=== PATIENT | female | born 1955 | race Caucasian/White ===

== ENCOUNTER 2019-04-26 14:02 | Emergency (ER) | payer MEDICARE, OTHER ==
[~2019-04-26] VITALS: Ht 165.1 cm; Wt 63.5 kg
[2019-04-26] MEDS ORDERED: IV NORMAL SALINE 1,000ML 1,000 ML IV SCH (14:08)
[2019-04-26] MEDS ORDERED: IPRATRPIUM/ALBUTEROL 0.5/2.5MG 3 ML NEBU. ONE (14:09)
[2019-04-26] MEDS ORDERED: AZITHROMYCIN 500 MG in IV NORMAL SALINE 250ML 250 ML IV ONE (14:15)
[2019-04-26] MEDS ORDERED: IPRATRPIUM/ALBUTEROL 0.5/2.5MG 3 ML NEBU. NEB ONE (14:15)
--- NOTE | 2019-04-26 14:16 | PHYS DOC ---
Past History Past Medical History: COPD Smoking: Cigarettes, Less than 1pk/day Adult General [facility] HPI Patient is a 63-year-old female, with a history of COPD, on home oxygen, current smoker, who presents to the emergency department for evaluation. Patient states that yesterday evening she began experiencing some increasing shortness of breath, along with a cough productive of some brownish sputum. She reports a generalized headache associated with the cough. She has not had any fevers or chills, chest pain, nausea, or vomiting. EMS reported that the patient was wheezing and gave her breathing treatment, they reported her blood pressure being somewhat low, in the 80s systolic. Upon arrival, she has a normal oxygen saturation on her home setting of 4 L of oxygen via nasal cannula. There are no alleviating or exacerbating factors to her symptoms otherwise. Review of Systems Review of Systems Constitutional: Denies fever or chills [] Eyes: Denies change in visual acuity, redness, or eye pain [] HENT: Denies nasal congestion or sore throat [] Respiratory: No additional information not addressed in HPI [] Cardiovascular: The patient denies any chest pain, palpitations, or orthopnea [] GI: Denies abdominal pain, nausea, vomiting, bloody stools or diarrhea [] : Denies dysuria or hematuria [] Musculoskeletal: Denies back pain or joint pain [] Integument: Denies rash or skin lesions [] Neurologic: Denies headache, focal weakness or sensory changes [] Endocrine: Denies polyuria or polydipsia [] All other systems were reviewed and found to be within normal limits, except as documented in this note. Current Medications Current Medications Current Medications Medications (Trade) Dose Ordered Sig/Suzie Start Time Stop Time Status Last Admin Dose Admin Albuterol/ Ipratropium (Duoneb) 3 ml 1X ONCE 04/26/19 14:15 04/26/19 14:16 UNV Physical Exam Physical Exam PHYSICAL EXAM: CONSTITUTIONAL: Well developed, well nourished HEAD: normocephalic, atraumatic EENT: PERRL, EOMI. Conjunctivae normal color, sclerae non-icteric; moist mucous membranes. NECK: Supple, non-tender; no meningismus. LUNGS: There are coarse wheezes scattered in all lung lo with scattered rhonchi, breathing even and unlabored. Globally diminished air movement. HEART: Regular rate and rhythm, no murmur CHEST: No deformity; non-tender ABDOMEN: The abdomen is soft, and non-tender, no masses or bruits. EXTREM: Normal ROM; no deformity, no calf tenderness. Normal pulses palpable in all extremities. There is no pedal edema. SKIN: No rash; no diaphoresis NEURO: Alert; normal speech and cognition; CN's grossly intact; strength grossly intact without focal deficit. BACK: No CVA TTP. Current Patient Data Lab Results Laboratory Tests Test 04/26/19 14:13 04/26/19 15:17 White Blood Count 9.5 x10^3/uL Red Blood Count 3.95 x10^6/uL Hemoglobin 11.2 g/dL Hematocrit 35.5 % Mean Corpuscular Volume 90 fL Mean Corpuscular Hemoglobin 28 pg Mean Corpuscular Hemoglobin Concent 32 g/dL Red Cell Distribution Width 14.3 % Platelet Count 396 x10^3/uL Neutrophils (%) (Auto) 64 % Lymphocytes (%) (Auto) 25 % Monocytes (%) (Auto) 8 % Eosinophils (%) (Auto) 3 % Basophils (%) (Auto) 1 % Neutrophils # (Auto) 6.0 x10^3uL Lymphocytes # (Auto) 2.3 x10^3/uL Monocytes # (Auto) 0.7 x10^3/uL Eosinophils # (Auto) 0.3 x10^3/uL Basophils # (Auto) 0.1 x10^3/uL Sodium Level 131 mmol/L Potassium Level 4.7 mmol/L Chloride Level 90 mmol/L Carbon Dioxide Level 40 mmol/L Anion Gap 1 Blood Urea Nitrogen 5 mg/dL Creatinine 0.6 mg/dL Estimated GFR (Cockcroft-Gault) 101.0 BUN/Creatinine Ratio 8 Glucose Level 84 mg/dL Lactic Acid Level 0.5 mmol/L Calcium Level 8.9 mg/dL Magnesium Level 1.6 mg/dL Total Bilirubin 0.2 mg/dL Aspartate Amino Transf (AST/SGOT) 26 U/L Alanine Aminotransferase (ALT/SGPT) 29 U/L Alkaline Phosphatase 81 U/L ND-Vjs-[id number]-Type Natriuretic Peptide 652 pg/mL Total Protein 7.5 g/dL Albumin 3.6 g/dL Albumin/Globulin Ratio 0.9 Influenza Type A (Rapid) Negative Influenza Type B (Rapid) Negative Current Medications Medications (Trade) Dose Ordered Sig/Suzie Route PRN Reason Start Time Stop Time Status Last Admin Dose Admin Albuterol/ Ipratropium (Duoneb) 3 ml STK-MED ONCE .ROUTE 04/26/19 14:09 04/26/19 14:09 DC Albuterol/ Ipratropium (Duoneb) 3 ml 1X ONCE NEB 04/26/19 14:15 04/26/19 14:34 DC 04/26/19 14:36 Methylprednisolone Sodium Succinate (SOLU-Medrol 125MG VIAL) 125 mg 1X ONCE IV 04/26/19 14:45 04/26/19 14:46 DC 04/26/19 14:50 Azithromycin 500 mg/Sodium Chloride 250 ml @ 250 mls/hr 1X ONCE IV 04/26/19 14:15 04/26/19 15:14 DC 04/26/19 14:50 Sodium Chloride 1,000 ml @ 1,000 mls/hr Q1H IV 04/26/19 14:08 04/26/19 15:07 DC 04/26/19 14:49 Sodium Chloride 250 ml @ As Directed STK-MED ONCE .ROUTE 04/26/19 14:45 04/26/19 14:45 DC Azithromycin (Zithromax) 500 mg STK-MED ONCE IV 04/26/19 14:45 04/26/19 14:45 DC Magnesium Oxide (Magnesium Oxide) 400 mg 1X ONCE PO 04/26/19 16:15 04/26/19 16:16 EKG EKG Normal sinus rhythm a rate of 71 beats for minute, normal axis, normal intervals, nonspecific T-wave changes without acute ischemic ST/T-segment changes.[] Radiology/Procedures Radiology/Procedures PROCEDURE: CHEST PA & LATERAL Study: CHEST PA LATERAL Indication: Shortness of breath. COPD. Comparison: None. Findings: The diaphragm is flattened. Generalized increased lung markings. Symmetric haziness at the lower third of both lungs favored related to overlying breast tissue. Rounded nodule projecting over the posterior left ninth rib is favored a nipple shadow when correlating with the lateral view. The cardiomediastinal silhouette is within normal limits for size. Mildly tortuous aorta with vascular calcifications. Right sixth and seventh chronic rib fractures with callus formation. Midthoracic superior endplate compression fracture, possibly T7, with localized kyphosis at this level. Mild superior endplate height loss at what is presumed to be T5 more so than T4. Impression: 1. Constellation of findings suggestive of underlying emphysema. 2. No localized infiltrate to suggest an organizing pneumonia. 3. Midthoracic superior endplate compression fracture thought to be T7 with junctional kyphosis. Less pronounced mild superior endplate height loss presumably at T5 more so than T4. Recommend correlation with pinpoint tenderness as no comparison studies are available to determine stability.[] Course & Med Decision Making Course & Med Decision Making Pertinent Labs and Imaging studies reviewed. (See chart for details) []4:10 PM: The patient's condition remains stable. Her oxygen level is in the upper 90s to 100% on her home oxygen setting of 4 L/m. I discussed importance of smoking cessation, the need for close PCP follow-up, and return precautions. Dragon Disclaimer Dragon Disclaimer This electronic medical record was generated, in whole or in part, using a voice recognition dictation system. Departure Departure: Impression: Primary Impression: COPD exacerbation Disposition: HOME, SELF-CARE Condition: STABLE Patient Instructions: Chronic Obstructive Pulmonary Disease Scripts Albuterol Sulfate (PROAIR HFA INHALER) 8.5 Gm Hfa.aer.ad 2 PUFF INH PRN Q6HRS PRN for SHORTNESS OF BREATH, #1 INHALER 0 Refills Prov: SHRUTHI SANCHEZ MD 04/26/19 Prednisone (PREDNISONE) 20 Mg Tablet 40 MG PO DAILY for - for 5 Days, #10 TAB Prov: SHRUTHI SANCHEZ MD 04/26/19 Azithromycin (ZITHROMAX) 250 Mg Tablet 1 PKG PO UD for -, #6 TAB Prov: SHRUTHI SANCHEZ MD 04/26/19 SHRUTHI SANCHEZ MD Apr 26, 2019 14:16
[2019-04-26] MEDS ORDERED: IV NORMAL SALINE 250ML 250 ML ONE (14:45)
[2019-04-26] MEDS ORDERED: methylPREDNISolone SOD SUCC PF 125 MG/2 ML VIAL. IV ONE (14:45)
[2019-04-26] MEDS ORDERED: AZITHROMYCIN 500 MG VIAL. IV ONE (14:45)
[2019-04-26 15:02] LABS: BASO # 0.1 x10^3/uL (0.0-0.2); BASO % 1 % (0-3); EOS # 0.3 x10^3/uL (0.0-0.7); EOS % 3 % (0-3); HEMATOCRIT 35.5 % (36.0-47.0); HEMOGLOBIN 11.2 g/dL (12.0-15.5); LYMPH # 2.3 x10^3/uL (1.0-4.8); LYMPH % 25 % (24-48); MEAN CORPUSCULAR HEMOGLOBIN 28 pg (25-35); MEAN CORPUSCULAR HGB CONC 32 g/dL (31-37); MEAN CORPUSCULAR VOLUME 90 fL (79-100); MONO # 0.7 x10^3/uL (0.0-1.1); MONO % 8 % (0-9); NEUT % 64 % (31-73); PLATELET COUNT 396 x10^3/uL (140-400); RED BLOOD COUNT 3.95 x10^6/uL (3.50-5.40); RED CELL DISTRIBUTION WIDTH 14.3 % (11.5-14.5); WHITE BLOOD COUNT 9.5 x10^3/uL (4.0-11.0)
--- NOTE | 2019-04-26 15:11 | RAD ---
Study: CHEST PA LATERAL Indication: Shortness of breath. COPD. Comparison: None. Findings: The diaphragm is flattened. Generalized increased lung markings. Symmetric haziness at the lower third of both lungs favored related to overlying breast tissue. Rounded nodule projecting over the posterior left ninth rib is favored a nipple shadow when correlating with the lateral view. The cardiomediastinal silhouette is within normal limits for size. Mildly tortuous aorta with vascular calcifications. Right sixth and seventh chronic rib fractures with callus formation. Midthoracic superior endplate compression fracture, possibly T7, with localized kyphosis at this level. Mild superior endplate height loss at what is presumed to be T5 more so than T4. Impression: 1. Constellation of findings suggestive of underlying emphysema. 2. No localized infiltrate to suggest an organizing pneumonia. 3. Midthoracic superior endplate compression fracture thought to be T7 with junctional kyphosis. Less pronounced mild superior endplate height loss presumably at T5 more so than T4. Recommend correlation with pinpoint tenderness as no comparison studies are available to determine stability. Electronically signed by: LATISHA ZIMMER MD (04/26/2019 3:08 PM) [facility]
[2019-04-26 15:24] LABS: ALBUMIN 3.6 g/dL (3.4-5.0); ALBUMIN/GLOBULIN RATIO 0.9 (1.0-1.7); CALCIUM 8.9 mg/dL (8.5-10.1); CREATININE 0.6 mg/dL (0.6-1.0); MAGNESIUM 1.6 mg/dL (1.8-2.4); POTASSIUM 4.7 mmol/L (3.5-5.1); TOTAL BILIRUBIN 0.2 mg/dL (0.2-1.0); TOTAL PROTEIN 7.5 g/dL (6.4-8.2)
[2019-04-26 16:00] LABS: INFLUENZA A PATIENT NEGATIVE (NEGATIVE); INFLUENZA B PATIENT NEGATIVE (NEGATIVE)
[2019-04-26] MEDS ORDERED: MAGNESIUM OXIDE 400 MG TABLET PO ONE (16:15)
[2019-04-26] MEDS ORDERED: AZIT250T PO (16:17)
[2019-04-26] MEDS ORDERED: ALBU2.5V8 INH (16:17)
[2019-04-26] MEDS ORDERED: PRED20TA PO (16:17)
[2019-04-26 16:32] VITALS: BP 119/61
--- NOTE | 2019-04-27 13:03 | EKG ---
[address] [address] Test Date: 2019-04-26 Test Time: 14:16:47 Pat Name: AMADOR LYNN Department: Room: Gender: F Environmental Field Technician: : 1955 Requested By: SHRUTHI SANCHEZ Order Number: [id number] Reading MD: Yogesh Peoples MD Measurements Intervals [place] Rate: 71 P: 21 [place]: 202 QRS: 36 QRSD: 84 T: 69 QT: 360 QTc: 396 Interpretive Statements SINUS RHYTHM Electronically Signed On 04-29-2019 11:07:27 [employer] by Yogesh Peoples MD
== END 2019-04-26 16:27 | disposition home or self-care (01) ==
LOC: ER 14:02
DX: J44.1 Chronic obstructive pulmonary disease with (acute) exacerbation (principal); F17.210 Nicotine dependence, cigarettes, uncomplicated; Z99.81 Dependence on supplemental oxygen
CPT/HCPCS: 36415; 71046; 80053; 83605; 83735; 83880; 85025; 87040; 87804; 93005; 94640; 96365; 96375; 99285; J0456; J2930; J7050; J7620; J7030